=== PATIENT | female | born 1980 | race Caucasian/White ===

== ENCOUNTER 2017-01-26 07:12 | Observation (INO) | payer BC, OTHER ==
[2017-01-26] VITALS (8 sets, daily range): BP systolic 110–138; BP diastolic 70–89; PULSE 50–77; TEMP 36.5–36.7; O2SAT 94–97; Ht 167.6 cm; Wt 91.0 kg
[~2017-01-26] VITALS: Ht 167.6 cm; Wt 91.0 kg
[~2017-01-26 07:12] MED LIST: ACETAMINOPHEN 1000 MG/100 ML IV IV ONE; BUPIVACAINE 0.5 % 5 MG/1 ML MPF 30ML VIAL ONE; CLINDAMYCIN IV 900 MG in DEXTROSE 5% ADD-VANTAGE 100ML 100 ML IV SCH; CONRAY 60% 50 ML VIAL ONE; DEXAMETHASONE SOD INJ 4 MG/ML VIAL ONE; FENTANYL CITRATE INJ 50 MCG/1 ML 2 ML VIAL ONE; GLYCOPYRROLATE INJ 0.2 MG/ML VIAL ONE; LACTATED RINGER'S 1000ML 1,000 ML IV SCH; LIDOCAINE HCL 2% 2 ML VIAL (20MG/ML) ONE; MIDAZOLAM HCL 1 MG/ML 2ML VIAL ONE; NEOSTIGMINE METHYLSULFATE 5 MG/5 ML SYR ONE; ONDANSETRON INJ 2 MG/ML 2 ML VIAL ONE; PATIENT'S ALLERGY INFO NEEDS ENTERED SCH; PROPOFOL IV EMULSION 10 MG/ML 20 ML VIAL IV ONE; ROCURONIUM BROMIDE 10 MG/ML 5 ML VIAL ONE
--- NOTE | 2017-01-26 07:45 | History & Physical Bridge Note ---
H&P Re-Evaluation Bridge Note: I have examined the patient, reviewed the History & Physical and in the interval since the performance of the History & Physical I have noted the following changes of clinical significance: No changes noted
[2017-01-26] MEDS ORDERED: IBUP-1459 PO (07:54)
[2017-01-26] MEDS ORDERED: PRENTAB26 PO (07:54)
[2017-01-26] MEDS ORDERED: EpHEDrine SULFATE INJ 50 MG/ML AMP IV PRN (08:15)
[2017-01-26] MEDS ORDERED: HYDROmorphone INJ 2 MG/ML SYR/VIAL IV PRN (08:15)
[2017-01-26] MEDS ORDERED: ONDANSETRON INJ 2 MG/ML 2 ML VIAL IV PRN ×2 (08:15→09:15)
[2017-01-26] MEDS ORDERED: PHENYLEPHRINE 100MCG/ML 5ML SYR IV PRN (08:15)
[2017-01-26] MEDS ORDERED: ATROPINE SULFATE 0.1 MG/ML 5ML SYR IV PRN (08:15)
[2017-01-26] MEDS ORDERED: LACTATED RINGER'S 1000ML 1,000 ML IV SCH (09:13)
--- NOTE | 2017-01-26 09:13 | [facility] Operative Report ---
Operative Report Operative Date Jan 26, 2017. Pre-Operative Diagnosis cholelithiasis Post-Operative Diagnosis cholelithiasis Procedure(s) Performed Laparoscopic Cholecystectomy Surgeon Dr. Raúl Park Intensivist Surgeon(s) Fausto Fay PA-C Estimated Blood Loss 5ML Findings normal appearing gallbladder Specimens A. Gallbladder Anesthesia gen Complication(s) None Disposition Recovery Room / PACU I attest to the content of the Intraoperative Record and any orders documented therein. Any exceptions are noted below.
[2017-01-26] MEDS ORDERED: MoRPHine SULFATE 2 MG/ML CARP IV PRN (09:15)
[2017-01-26] MEDS ORDERED: MoRPHine SULFATE 4 MG/ML 1 ML CARP\\VIAL IV PRN (09:15)
[2017-01-26] MEDS ORDERED: HYDROCODONE/ACETAMOPHEN 5/325MG TAB PO PRN ×2 (09:15)
[2017-01-26] MEDS ORDERED: HYDR-5688 PO (09:21)
--- NOTE | 2017-01-26 09:24 | Discharge Instructions ---
Discharge Instructions Date of Service Jan 26, 2017. Admission Reason for Admission: Cholelithiasis Discharge Discharge Diagnosis / Problem: biliary colic, cholelithiasis Discharge Goals Goal(s): Decrease discomfort, Improve function, Improve disease control Activity Recommendations Activity Limitations: as noted below Lifting Limitations: no more than 25 pounds Exercise/Sports Limitations: until after follow-up appointment May Resume Sexual Activity: when tolerated Shower/Bathe: no limitations (may shower, no bath for 1 week) Driving or Machine Use: resume 3 days after discharge SPECIAL CARE INSTRUCTIONS: * Cover incisions and change daily for comfort/drainage. * May leave incisions uncovered with dermabond * May use ibuprofen for pain as tolerated. * Expect some swelling and bruising. Call your doctor if: * Temperature above 101 degrees * Pain not relieved by pain medicine ordered * There is increased drainage or redness from any incision * You have any unanswered questions or concerns [phone]. FOLLOW UP VISIT: If not already scheduled, please call the office for a follow-up visit. for 2-3 weeks- checkup, no sutures to remove OFFICE PHONE NUMBER: Dr. Park Office . Current Hospital Diet Patient's current hospital diet: Regular Diet Discharge Diet Recommended Diet: Regular Diet Procedures Procedures Performed: Laparoscopic Cholecystectomy Pending Studies Studies pending at discharge: no Medical Emergencies . Who to Call and When: Medical Emergencies: If at any time you feel your situation is an emergency, please call 911 immediately. . Non-Emergent Contact Non-Emergency issues call your: Primary Care Provider, Surgeon . "Provider Documentation" section prepared by Raúl Park. . VTE Core Measure Inpt VTE Proph given/why not?: SCD's
--- NOTE | 2017-01-26 09:45 | OPERATIVE REPORT ---
DATE OF OPERATION: 01/26/2017 NAME OF OPERATION: Laparoscopic cholecystectomy. PREOPERATIVE DIAGNOSIS: Cholelithiasis and biliary colic. POSTOPERATIVE DIAGNOSIS: Same. STAFF SURGEON: Dr. Park. DRAW FRAME TENDER: Fausto Fay PA-C. ANESTHESIA: General. PROCEDURE IN DETAIL: The patient was brought in the operating room and placed on the operating table in supine position. Her abdomen was prepped and draped in usual fashion. Pneumatic stockings and orogastric tube were placed. Incision was made just above the umbilicus using 0.5% plain Marcaine to anesthetize all incisions. Dissection was carried down to the fascia. A Veress needle was placed to produce pneumoperitoneum. An 11 mm port was placed at this level and then under visualization, three 5 mm ports were placed, 1 cephalad and 2 laterally. At this point, the gallbladder was grasped and retracted. It was aspirated of bile. It did appear to be relatively normal. Dissection was carried out at the theresa hepatis, identifying the cystic duct which was clipped and transected. The cystic artery identified, clipped and transected, also the common hepatic artery was identified. Gallbladder then dissected away from the liver bed in the usual fashion, placed in an Endobag. After appropriate hemostasis and irrigation, the Endobag was removed through the umbilical site. The umbilical fascia was closed using interrupted Vicryl suture. Skin reapproximated using subcuticular 4-0 Monocryl and Dermabond. The patient was transferred to recovery room in stable condition. I attest to the content of the Intraoperative Record and any orders documented therein. Any exception s are noted below.
--- NOTE | 2017-01-26 10:02 | Anesthesiology Progress Note ---
Anesthesia Post Op Note Date & Time Jan 26, 2017 at 10:02 Vital Signs Pain Intensity: 0 Vital Signs Past 12 Hours Date Time Temp Pulse Resp B/P (MAP) Pulse Ox O2 Delivery O2 Flow Rate FiO2 01/26/17 09:49 66 4 96 01/26/17 09:49 67 4 01/26/17 09:46 139/95 01/26/17 09:44 70 10 01/26/17 09:44 70 10 95 01/26/17 09:41 144/92 01/26/17 09:39 73 21 98 01/26/17 09:39 72 21 01/26/17 09:36 149/100 01/26/17 09:34 79 17 01/26/17 09:34 78 17 150/97 97 01/26/17 09:31 149/102 01/26/17 09:29 87 17 97 01/26/17 09:29 87 17 01/26/17 09:26 149/99 01/26/17 09:24 87 16 98 01/26/17 09:24 87 16 01/26/17 09:21 139/90 01/26/17 09:20 147/98 01/26/17 09:19 83 23 01/26/17 09:19 23 01/26/17 09:19 36.2 86 12 139/90 96 Mask 10 01/26/17 08:00 36.7 77 18 112/77 (89) 97 Room Air Notes Mental Status: alert / awake / arousable, participated in evaluation Pt Amnestic to Procedure: Yes Nausea / Vomiting: adequately controlled Pain: adequately controlled Airway Patency, RR, SpO2: stable & adequate BP & HR: stable & adequate Hydration State: stable & adequate Anesthetic Complications: no major complications apparent
[2017-01-26] MEDS ORDERED: IV FLUIDS COMPLETED PRN (10:30)
[2017-01-26] MEDS ORDERED: KETOROLAC TROMETHAMINE 30 MG/ML VIAL IV. SCH (10:45)
[2017-01-26] MEDS: IBUPROFEN 600 MG TAB PO PRN ×2 (12:35→20:00)
[2017-01-27 03:15] VITALS: BP 124/75; PULSE 65; TEMP 36.6; O2SAT 98
--- NOTE | 2017-01-27 06:20 | Discharge Summary ---
Discharge Summary Date of Service Jan 27, 2017. Discharge Summary Admission Date: Jan 26, 2017 at 10:48 Discharge Date: Jan 27, 2017 Primary Diagnosis: biliary colic Procedures: lap ashlee Discharge Instructions Last Recorded Wt (Kilograms): 91.000 Allergies: Coded Allergies: Imipramine (Verified Allergy, Unknown, ., 01/26/17) Penicillin G (Verified Allergy, Unknown, ., 01/26/17) Special Care: Call your doctor if: * Temperature above 101 degrees * Pain not relieved by pain medicine ordered * There is increased drainage or redness from any incision * You have any unanswered questions or concerns. Avoid all tobacco products. If you need help to stop smoking, call [facility] [employer] FREE QUITLINE at . This is a free call. Admission Information Admission HPI: pt with recurrent biliary colic and gallstones. recent / delivery Hospital Course pt adm to hospital 01/27- to OR for elective lap ashlee- tolerated well. for d/c home today. see in office 2-3 weeks Total time spent on discharge = This includes examination of the patient, discharge planning, medication reconciliation, and communication with other providers.
[2017-01-27] MEDS: IBUPROFEN 600 MG TAB PO PRN (07:36)
[2017-01-27 08:00] VITALS: BP 119/75; PULSE 55; TEMP 36.7; O2SAT 97
[2017-01-27 08:42] VITALS: BP 119/75; PULSE 55; TEMP 36.7; O2SAT 97
--- NOTE | 2017-01-27 10:58 | Anesthesiology Progress Note ---
Anesthesia Post Op Note Date & Time Jan 27, 2017 at 10:57 Vital Signs Pain Intensity: 2.0 Vital Signs Past 12 Hours Date Time Temp Pulse Resp B/P (MAP) Pulse Ox O2 Delivery O2 Flow Rate FiO2 01/27/17 08:42 36.7 55 16 97 Room Air 01/27/17 08:00 36.7 55 16 119/75 (90) 97 Room Air 01/27/17 07:45 Room Air 01/27/17 03:15 36.6 65 16 124/75 (91) 98 Room Air 01/26/17 23:45 Room Air Notes Mental Status: alert / awake / arousable, participated in evaluation Pt Amnestic to Procedure: Yes Nausea / Vomiting: adequately controlled Pain: adequately controlled Airway Patency, RR, SpO2: stable & adequate BP & HR: stable & adequate Hydration State: stable & adequate Anesthetic Complications: no major complications apparent
== END 2017-01-27 10:49 | disposition home or self-care (01) ==
LOC: C.ACU 07:12 → ENRESERV 09:48 → C.MSN 10:48
PROVIDERS: ADMIT Surgery; ATTEND Surgery
DX: K81.1 Chronic cholecystitis (principal); Z82.49 Family history of ischemic heart disease and other diseases of the circulatory system; Z80.0 Family history of malignant neoplasm of digestive organs; Z80.41 Family history of malignant neoplasm of ovary